=== PATIENT | female | born 1940 | race Caucasian/White ===

== ENCOUNTER 2017-01-28 03:31 | Emergency (ER) | payer OTHER ==
[~2017-01-28] VITALS: Ht 149.9 cm; Wt 62.7 kg
[2017-01-28 03:35] VITALS: Ht 149.9 cm; Wt 62.7 kg
--- NOTE | 2017-01-28 03:55 | ERA ---
ER Documentation Chief Complaint Date/Time DATE: 01/28/17 TIME: 03:54 Chief Complaint Low hemoglobin HPI The patient is a 76-year-old female, presenting to the ER because of low hemoglobin, sent to the ER by her physician. She denies any hematemesis, hematochezia, syncope or near syncope, dizziness, neck pain, chest pain, dyspnea ,, abdominal pain, vomiting with dysuria. She does not smoke nor drink Past medical history: Diabetes mellitus, hypertension Past surgical history: Cholecystectomy ROS All systems reviewed and are negative except as per history of present illness. Medications Home Meds Reported Medications Ferrous Sulfate* (Ferrous Sulfate*) 325 Mg Tabec, 325 MG PO DAILY, TAB 01/28/17 Glipizide* (Glipizide*) 5 Mg Tablet, 5 MG PO DAILY, TAB 01/28/17 Losartan Potassium* (Losartan Potassium*) 50 Mg Tablet, 50 MG PO BID, TAB 01/28/17 Labetalol Hcl* (Labetalol Hcl*) 200 Mg Tablet, 200 MG PO BID, TAB 01/28/17 Allergies Allergies: Coded Allergies: No Known Allergy (Unverified , 01/28/17) Physical Exam Vitals Vital Signs Date Time Temp Pulse Resp B/P Pulse Ox O2 Delivery O2 Flow Rate FiO2 01/28/17 05:38 69 20 174/63 100 Room Air 01/28/17 04:11 75 20 172/79 100 Room Air 01/28/17 03:35 97.0 88 20 181/77 100 Physical Exam Const: No acute distress. Pale Head: Atraumatic. Eyes: Icteric Conjunctiva. ENT: Normal External Ears, Nose and Mouth. Neck: Full range of motion. No meningismus. Resp: Clear to auscultation bilaterally. Cardio: Regular rate and rhythm. Abd: Soft, non distended, normal bowel sounds, non tender. Skin: No petechiae or rashes. Back: No midline or flank tenderness. Ext: No cyanosis, or edema. Neur: Awake and alert. No focal deficit Psych: Normal Mood and Affect. Result Diagram: 01/28/170 01/28/17399 Results 24 hrs Laboratory Tests Test 01/28/17 04:00 White Blood Count 5.210^3/ul Red Blood Count 2.8210^6/ul Hemoglobin 6.9g/dl Hematocrit 23.7% Mean Corpuscular Volume 84.0fl Mean Corpuscular Hemoglobin 24.5pg Mean Corpuscular Hemoglobin Concent 29.1g/dl Red Cell Distribution Width 20.2% Platelet Count 66025^3/UL Mean Platelet Volume 9.7fl Neutrophils % 49.5% Lymphocytes % 35.1% Monocytes % 9.4% Eosinophils % 5.4% Basophils % 0.4% Nucleated Red Blood Cells % 0.0/100WBC Neutrophils # 2.610^3/ul Lymphocytes # 1.810^3/ul Monocytes # 0.510^3/ul Eosinophils # 0.310^3/ul Basophils # 0.010^3/ul Nucleated Red Blood Cells # 0.010^3/ul Prothrombin Time 14.0Sec Prothrombin Time Ratio 1.1 INR International Normalized Ratio 1.08 Activated Partial Thromboplast Time 29.1Sec Sodium Level 144mmol/L Potassium Level 4.2mmol/L Chloride Level 106mmol/L Carbon Dioxide Level 25mmol/L Anion Gap 17 Blood Urea Nitrogen 12mg/dl Creatinine 0.77mg/dl Glucose Level 91mg/dl Calcium Level 9.0mg/dl Total Bilirubin 0.3mg/dl Direct Bilirubin 0.00mg/dl Indirect Bilirubin 0.3mg/dl Aspartate Amino Transf (AST/SGOT) 25IU/L Alanine Aminotransferase (ALT/SGPT) 28IU/L Alkaline Phosphatase 94IU/L Total Protein 7.1g/dl Albumin 3.8g/dl Globulin 3.30g/dl Albumin/Globulin Ratio 1.15 Procedures/MDM EKG: Read by emergency physician Rate/Rhythm: Normal Sinus Rhythm 81 beats/min QRS, ST, T-waves: No ST elevation, no T inversion, sinus arrhythmia Impression: Abnormal EKG MEDICAL MAKING DECISION: The patient is a 76-year-old female, presenting with anemia. There is no sign of active bleeding. She was treated with 2 unit of packed red blood cell and is stable for outpatient follow-up Consultation: I discussed the person with her physician Dr. Taylor, who was made aware of the lab, the treatment, the patient condition. He recommended discharge the patient after transfusion Departure Diagnosis: Primary Impression: Anemia Condition: Fair Comments I discussed the findings with the patient. I advised the patient to follow-up with the primary physician in about 1-2 days for referral to see gastroenterology for further evaluation, sooner if needed and return if any concern. DREAD COLBY MD Jan 28, 2017 03:55
[2017-01-28 04:17] LABS: ABNORMAL IP MESSAGE 1; BASOPHILS % 0.4 % (0.0-2.0); EOSINOPHILS # 0.3 10^3/ul (0.0-0.5); EOSINOPHILS % 5.4 % (0.0-7.0); HEMATOCRIT 23.7 % (37.0-47.0); LYMPHOCYTES # 1.8 10^3/ul (0.8-2.9); LYMPHOCYTES % 35.1 % (15.0-51.0); MEAN CORPUSCULAR HEMOGLOBIN 24.5 pg (29.0-33.0); MEAN CORPUSCULAR HGB CONC 29.1 g/dl (32.0-37.0); MEAN PLATELET VOLUME 9.7 fl (7.4-10.4); MONOCYTE # 0.5 10^3/ul (0.3-0.9); MONOCYTES % 9.4 % (0.0-11.0); NEUTROPHIL # 2.6 10^3/ul (1.6-7.5); NEUTROPHILS % 49.5 % (39.0-77.0); PLATELET COUNT 298 10^3/UL (140-415); RED BLOOD COUNT 2.82 10^6/ul (4.20-5.40); RED CELL DISTRIBUTION WIDTH 20.2 % (11.5-14.5); WHITE BLOOD COUNT 5.2 10^3/ul (4.8-10.8)
[2017-01-28 04:21] LABS: HEMOGLOBIN 6.9 g/dl (12.0-16.0); POSITIVE DIFF @See below
[2017-01-28 04:36] LABS: INR 1.08; PT RATIO 1.1
[2017-01-28 04:37] LABS: PARTIAL THROMBOPLASTIN TIME 29.1 Sec (25.0-35.0)
[2017-01-28 04:41] LABS: ALBUMIN 3.8 g/dl (3.3-4.9); ALBUMIN/GLOBULIN RATIO 1.15; BILIRUBIN,INDIRECT 0.3 mg/dl (0-1.1); BILIRUBIN,TOTAL 0.3 mg/dl (0.2-1.3); CREATININE 0.77 mg/dl (0.44-1.00); POTASSIUM 4.2 mmol/L (3.5-5.1); TOTAL PROTEIN 7.1 g/dl (6.1-8.1)
[2017-01-28] MEDS ORDERED: LABE200T25 PO (05:36)
[2017-01-28] MEDS ORDERED: GLIP5TAB13 PO (05:36)
[2017-01-28] MEDS ORDERED: LOSA50TA6 PO (05:36)
[2017-01-28] MEDS ORDERED: FER325 PO (05:36)
[2017-01-28 09:38] VITALS: TEMP 98.1
[2017-01-28 13:22] VITALS: BP 179/79; PULSE 71; RESP 20
== END 2017-01-28 13:26 | disposition home or self-care (01) ==
LOC: E/R 03:31
DX: D64.9 Anemia, unspecified (principal); R94.31 Abnormal electrocardiogram [ECG] [EKG]; I10 Essential (primary) hypertension; E11.9 Type 2 diabetes mellitus without complications; Z79.84 Long term (current) use of oral hypoglycemic drugs
CPT/HCPCS: 36415; 36430; 80053; 85025; 85610; 85730; 86850; 86900; 86901; 86920; 93005; 99285; P9016

== ENCOUNTER 2018-02-09 12:41 | Emergency (ER) | END 2018-02-09 18:18 | disposition home or self-care (01) ==

== ENCOUNTER 2018-09-04 13:54 | Inpatient (IN) | payer MEDICARE, OTHER ==
[~2018-09-04] VITALS: Ht 121.9 cm; Wt 59.7 kg
[~2018-09-04 13:54] MED LIST: AMLO5TAB4 PO; BENA10TA4 PO; CHOL100062 PO; CYAN100080 PO; DOCU-144 PO; FLUC200T52 PO; HYDR-4011 PO; METR500T PO; ONDA4TAB14 PO
--- NOTE | 2018-09-04 20:11 | ERD ---
ER Documentation Chief Complaint Chief Complaint Per daughter Mother has been hallucinating with flu symptoms x 2 days HPI 78-year-old female with history of hypertension, colon cancer status post colectomy and urinary tract infections presents to the ED with daughter for evaluation of a 2-day history of intermittent periods of confusion and speaking to people who are not there. Patient denies chest pain, palpitations, cough or shortness of breath. No abdominal pain, nausea, vomiting, diarrhea or constipation. Denies dysuria, polyuria, hematuria or flank pain. No URI symptoms, rhinorrhea or odynophagia. No headache, neck or back pain. No fevers or chills. History is supplemented by the daughter who states that patient had prior episodes of urinary tract infection would cause similar symptoms. ROS All systems reviewed and are negative except as per history of present illness. Medications Home Meds Active Scripts Levofloxacin* (Levofloxacin*) 250 Mg Tablet, 250 MG PO DAILY for 7 Days, TAB Prov:JABIER CORONADO MD 09/06/18 Reported Medications Metoprolol Tartrate* (Lopressor*) 25 Mg Tab, 12.5 MG PO BID, #60 TAB 09/04/18 Benazepril Hcl* (Benazepril Hcl*) 10 Mg Tablet, 10 MG PO BID, #60 TAB 09/04/18 Amlodipine Besylate* (Amlodipine Besylate*) 10 Mg Tablet, 10 MG PO DAILY, #30 TAB 09/04/18 Discontinued Reported Medications Hydrocodone/Acetaminophen (Freedom 5-325 Tablet) 1 Each Tablet, 1 EACH PO DAILY PRN for SEVERE PAIN LEVEL 7-10, TAB 02/09/18 Docusate Sodium* (Colace*) 100 Mg Capsule, 100 MG PO DAILY PRN for CONSTIPATION, #30 CAP 02/09/18 Fluconazole* (Fluconazole*) 200 Mg Tablet, 200 MG PO DAILY for 10 Days, TAB 02/09/18 Metronidazole* (Flagyl*) 500 Mg Tablet, 500 MG PO Q8 for 10 Days, TAB 02/09/18 Benazepril Hcl* (Benazepril Hcl*) 10 Mg Tablet, 10 MG PO DAILY, #30 TAB 02/09/18 Amlodipine Besylate* (Norvasc*) 5 Mg Tablet, 5 MG PO DAILY, TAB 02/09/18 Cyanocobalamin* (Vitamin B-12*) 1,000 Mcg Tablet.sa, 1000 MCG PO DAILY, TAB 02/09/18 Cholecalciferol* (Vitamin D3*) 1,000 Unit Tablet, 1000 UNIT PO DAILY, TAB 02/09/18 Discontinued Scripts Ondansetron (Ondansetron Odt) 4 Mg Tab.rapdis, 4 MG PO Q6H PRN for NAUSEA AND/OR VOMITING, #20 TAB Prov:HERNAN JAMES MD 02/09/18 Allergies Allergies: Coded Allergies: No Known Allergy (Unverified , 09/04/18) PMhx/Soc Reviewed in chart. As per HPI. History of Surgery: Yes (colon ressection 01/19/18, accordian drain placement for infection 02/01/18) Anesthesia Reaction: No Hx Neurological Disorder: No Hx Respiratory Disorders: No Hx Cardiac Disorders: Yes (htn) Hx Psychiatric Problems: No Hx Miscellaneous Medical Probl: Yes (colon CA. possible recurrence and biopsy is pending.) Hx Alcohol Use: No Hx Substance Use: No Hx Tobacco Use: No Smoking Status: Never smoker FmHx Family History: No diabetes, No coronary disease, No other Physical Exam Vitals Vital Signs Date Temp Pulse Resp B/P (MAP) Pulse Ox O2 O2 Flow FiO2 Time Delivery Rate 09/04/18 92 18 133/69 96 Room Air 21:30 (90) 09/04/18 98.2 94 18 133/63 98 13:58 (86) Physical Exam Const: No acute distress Head: Atraumatic Eyes: Normal Conjunctiva ENT: Normal External Ears, Nose and Mouth. Neck: Full range of motion. No meningismus. Resp: Clear to auscultation bilaterally Cardio: Regular rate and rhythm, no murmurs Abd: Soft, non tender, non distended. Normal bowel sounds Skin: No petechiae or rashes Back: No midline or flank tenderness Ext: No cyanosis, or edema Neur: Awake and alert Psych: Normal Mood and Affect Result Diagram: 09/06/18 0516 09/06/18 0516 Results 24 hrs Laboratory Tests Test 09/04/18 20:33 09/04/18 22:26 White Blood Count 13.3 10^3/ul Red Blood Count 3.74 10^6/ul Hemoglobin 12.7 g/dl Hematocrit 36.7 % Mean Corpuscular Volume 98.1 fl Mean Corpuscular Hemoglobin 34.0 pg Mean Corpuscular Hemoglobin Concent 34.6 g/dl Red Cell Distribution Width 11.9 % Platelet Count 208 10^3/UL Mean Platelet Volume 10.2 fl Immature Granulocytes % 0.700 % Neutrophils % 85.5 % Lymphocytes % 7.5 % Monocytes % 6.0 % Eosinophils % 0.1 % Basophils % 0.2 % Nucleated Red Blood Cells % 0.0 /100WBC Immature Granulocytes # 0.090 10^3/ul Neutrophils # 11.4 10^3/ul Lymphocytes # 1.0 10^3/ul Monocytes # 0.8 10^3/ul Eosinophils # 0.0 10^3/ul Basophils # 0.0 10^3/ul Nucleated Red Blood Cells # 0.0 10^3/ul Urine Color MARGARITO Urine Clarity CLOUDY Urine pH 5.0 Urine Specific [place] 1.023 Urine Ketones 1+ mg/dL Urine Nitrite NEGATIVE mg/dL Urine Bilirubin NEGATIVE mg/dL Urine Urobilinogen 2+ mg/dL Urine Leukocyte Esterase 2+ Nandini/ul Urine Microscopic RBC 47 /HPF Urine Microscopic WBC > 182 /HPF Urine Squamous Epithelial Cells FEW /HPF Urine Mucus MANY /HPF Urine Hemoglobin 1+ mg/dL Urine Glucose NEGATIVE mg/dL Urine Total Protein 2+ mg/dl Sodium Level 137 mmol/L Potassium Level 3.8 mmol/L Chloride Level 99 mmol/L Carbon Dioxide Level 22 mmol/L Anion Gap 16 Blood Urea Nitrogen 17 mg/dl Creatinine 0.61 mg/dl Est Glomerular Filtrat Rate mL/min mL/min Glucose Level 160 mg/dl Calcium Level 9.6 mg/dl Total Bilirubin 1.6 mg/dl Direct Bilirubin 0.00 mg/dl Indirect Bilirubin 1.6 mg/dl Aspartate Amino Transf (AST/SGOT) 51 IU/L Alanine Aminotransferase (ALT/SGPT) 34 IU/L Alkaline Phosphatase 140 IU/L Troponin I < 0.012 ng/ml Total Protein 8.7 g/dl Albumin 4.5 g/dl Globulin 4.20 g/dl Albumin/Globulin Ratio 1.07 POC Venous Lactate 1.0 mmol/L Current Medications Medications Dose Sig/Luisa Start Time Status Last (Trade) Ordered Route PRN Stop Time Admin Dose Reason Admin Ceftriaxone 50 ml @ ONCE STAT 09/04/18 DC 09/04/18 Sodium 100 mls/hr IVPB 22:03 22:56 09/04/18 22:32 Procedures/MDM DOCUMENTS REVIEWED: ED nurse, prior records EKG: Rate/Rhythm: Normal Sinus Rhythm QRS, ST, T-waves: No changes consistent w/ acute ischemia Impression: No evidence of ischemia or arrhythmia IMAGING: Chest AP portable: The cardiac silhouette is normal. Atelectasis at the bases but no effusions or infiltrates. No mediastinal widening. No abnormalities of the bony thorax. My interpretation. MEDICAL DECISION MAKIN-year-old female with history of hypertension, colon cancer status post colectomy and urinary tract infections presents to the ED with daughter for evaluation of a 2-day history of intermittent periods of confusion and speaking to people who are not there. CBC remarkable for leukocytosis but no anemia or thrombocytopenia. Chemistry is negative for electrolyte abnormalities, renal insufficiency or hyperglycemia. Liver function tests revealed mild hyperbilirubinemia, transaminitis and elevated alk phosphatase. EKG is negative for acute ischemic changes or dysrhythmia. Troponin is negative. Urinalysis significant for pyuria and culture is pending. Chest x-ray negative for pneumonia or congestive heart failure. Patient presents with criteria for systemic inflammatory response syndrome including tachycardia and leukocytosis. Serial lactates are less than 2.0. Patient presents with acute encephalopathy and sepsis secondary to urinary tract infection without hypotension or criteria for severe sepsis or septic shock. No CVA tenderness or signs of pyelonephritis. Antibiotics initiated after cultures. No headache, focal neurologic deficit or indication for neuroimaging. No signs of meningitis or encephalitis. History of colon cancer with possible recurrence pending biopsy abdominal exam is completely benign without tender ness, rebound, guarding, signs of peritonitis or indication for advanced imaging. Admit [place] [facility] [place] pending cultures, further evaluation and management. PATIENT CARE TRANSITIONED: Time: 23:55, Dr. Elder. Counseled patient and family regarding diagnosis, diagnostic results and plan for admission. Departure Diagnosis: Primary Impression: Acute encephalopathy Additional Impressions: Urinary tract infection Urinary tract infection type: acute cystitis Hematuria presence: without hematuria Qualified Codes: N30.00 - Acute cystitis without hematuria History of colon cancer Condition: Serious ROCKY QUIROGA MD Sep 04, 2018 20:11
[2018-09-04] MEDS ORDERED: AMLO-147 PO (21:48)
[2018-09-04] MEDS ORDERED: BENA10TA4 PO (21:49)
[2018-09-04] MEDS ORDERED: METO-448 PO (21:49)
[2018-09-04] MEDS ORDERED: CEFTRIAXONE 1 GM/50 ML (PMX) 50 ML IVPB STA (22:03)
[2018-09-05] MEDS ORDERED: ONDANSETRON 4 MG INJ IV PRN ×2 (00:30→01:00)
[2018-09-05] MEDS ORDERED: NA PHOSPHATE/BIPHOS 133 ML ENEMA PR ONE (00:30)
[2018-09-05] MEDS ORDERED: ACETAMINOPHEN 325 MG TAB PO PRN (00:30)
[2018-09-05] MEDS ORDERED: NACL 0.9% 3 ML SYG IV SCH (01:00)
[2018-09-05 01:24] VITALS: Ht 121.9 cm; Wt 59.7 kg
[2018-09-05 01:29] VITALS: BP 138/73; PULSE 102; RESP 18
--- NOTE | 2018-09-05 04:32 | HP ---
Date/Time of Note Date/Time of Note DATE: 09/05/18 TIME: 04:29 Assessment/Plan VTE Prophylaxis Pharmacological prophylaxis: heparin Lines/Catheters IV Catheter Type (from Nrs): Saline [place] Assessment/Plan Assessment/Plan 1. Altered mentation, likely secondary to UTI, toxic metabolic -No focal neurologic deficit reported -Treat UTI -We will consider head CT 2. Sepsis: As evidenced by leukocytosis and tachycardia, secondary to UTI -IV ceftriaxone -IV fluid -Follow-up culture results 3. History of colon cancer: Status post resection (12/2017): Her daughter, CT 3 weeks ago shows "big lymph nodes" possibly indicating recurrence of cancer. She is scheduled for biopsy. -Daughter will tell last name of her oncologist during the day. will then place consult to the appropriate oncologist 4. Hypertension: BP within goal Result Diagram: 09/04/18203209/04/182032 Results 24hrs Laboratory Tests Test 09/04/18 20:33 09/04/18 22:26 09/05/18 00:44 White Blood Count 13.3 #H Red Blood Count 3.74 L Hemoglobin 12.7 # Hematocrit 36.7 #L Mean Corpuscular Volume 98.1 Mean Corpuscular Hemoglobin 34.0 H Mean Corpuscular Hemoglobin Concent 34.6 Red Cell Distribution Width 11.9 Platelet Count 208 # Mean Platelet Volume 10.2 Immature Granulocytes % 0.700 H Neutrophils % 85.5 H Lymphocytes % 7.5 L Monocytes % 6.0 Eosinophils % 0.1 Basophils % 0.2 Nucleated Red Blood Cells % 0.0 Immature Granulocytes # 0.090 H Neutrophils # 11.4 H Lymphocytes # 1.0 Monocytes # 0.8 Eosinophils # 0.0 Basophils # 0.0 Nucleated Red Blood Cells # 0.0 Urine Color MARGARITO Urine Clarity CLOUDY A Urine pH 5.0 Urine Specific [place] 1.023 Urine Ketones 1+ H Urine Nitrite NEGATIVE Urine Bilirubin NEGATIVE Urine Urobilinogen 2+ H Urine Leukocyte Esterase 2+ H Urine Microscopic RBC 47 H Urine Microscopic WBC > 182 H Urine Squamous Epithelial Cells FEW Urine Mucus MANY A Urine Hemoglobin 1+ H Urine Glucose NEGATIVE Urine Total Protein 2+ H Sodium Level 137 Potassium Level 3.8 Chloride Level 99 Carbon Dioxide Level 22 Anion Gap 16 H Blood Urea Nitrogen 17 Creatinine 0.61 Est Glomerular Filtrat Rate mL/min Glucose Level 160 Calcium Level 9.6 Total Bilirubin 1.6 H Direct Bilirubin 0.00 Indirect Bilirubin 1.6 H Aspartate Amino Transf (AST/SGOT) 51 H Alanine Aminotransferase (ALT/SGPT) 34 Alkaline Phosphatase 140 H Troponin I < 0.012 Total Protein 8.7 H Albumin 4.5 Globulin 4.20 H Albumin/Globulin Ratio 1.07 POC Venous Lactate 1.0 1.9 HPI/ROS Admit Date/Time Admit Date/Time Sep 05, 2018 at 00:06 Hx of Present Illness This is an 78-year-old female with a history of hypertension, colon cancer status post resection (12/2017). Patient was brought to the ER because of altered mentation. She has been noted by family at times to be hallucinating. Patient is accompanied by her daughter who helps with the history. She said the last time she had similar symptoms was a year ago and she was diagnosed with UTI at that time. When presented to ER she was alert and oriented. Initial vitals stable. UA consistent with UTI. Influenza negative. WBC 13,000. Chest x-ray without acute findings. As far as her colon cancer is concerned, she saw her oncologist (daughter does not remember name) about 3 weeks ago. At that time, she had a CT and was told that the cancer is possibly coming back because of "big lymph nodes". She is scheduled for a biopsy. Patient was diagnosed with colon cancer last year and is status post resection in December 2017. Per daughter, no treatment with chemo or radiation. PMH/Family/Social Past Medical History Medical History: other (See HPI) Medications Current Medications Ondansetron HCl (Zofran Inj) 4 mg BRIDGE ORDER PRN IV NAUSEA/VOMITING; Start 09/05/18 at 00:30; Stop 09/06/18 at 00:29 Acetaminophen (Tylenol Tab) 650 mg ER BRIDGE PRN PO .MILD PAIN 1-3 OR TEMP; Start 09/05/18 at 00:30; Stop 09/06/18 at 00:29 IV Flush (NS 3 ml) 3 ml PER PROTOCOL IV ; Start 09/05/18 at 01:00 Ondansetron HCl (Zofran Inj) 4 mg Q6H PRN IV NAUSEA/VOMITING; Start 09/05/18 at 01:00 Acetaminophen (Tylenol Tab) 650 mg Q6H PRN PO .PAIN 1-3 OR TEMP; Start 09/05/18 at 01:00 Heparin Sodium (Porcine) (Heparin (5000 Units/1ml)) 5,000 unit Q12 SC ; Start 09/05/18 at 09:00 Amlodipine Besylate (Norvasc) 10 mg DAILY PO ; Start 09/05/18 at 09:00 Benazepril HCl (Lotensin) 10 mg BID PO ; Start 09/05/18 at 09:00 Metoprolol Tartrate (Lopressor) 12.5 mg BID PO ; Start 09/05/18 at 09:00 Ceftriaxone Sodium 50 ml @ 100 mls/hr DAILY IVPB ; Start 09/05/18 at 09:00 Coded Allergies: No Known Allergy (Unverified , 09/04/18) Past Surgical History Past Surgical Hx: other (See HPI) Family History Significant Family History: no pertinent family hx Social History Alcohol Use: none Smoking Status: Unknown if ever smoked Drug Use: none Exam/Review of Systems Vital Signs Vitals Vital Signs Date Temp Pulse Resp B/P (MAP) Pulse Ox O2 O2 Flow FiO2 Time Delivery Rate 09/05/18 98.5 102 18 138/73 95 01:29 (94) 09/05/18 Room Air 00:30 Exam Constitutional: other (No acute distress. Looks comfortable) Head: normocephalic, atraumatic Eyes: EOMI, PERRL Respiratory: clear to auscultation, normal air movement Cardiovascular: regular rate and rhythm, nl pulses Gastrointestinal: soft, non-tender Extremities: normal pulses ARMINDA ORTIZ MD Sep 05, 2018 04:31
[2018-09-05 07:56] VITALS: BP 128/60; PULSE 103; RESP 18
[2018-09-05] MEDS: METOPROLOL 25 MG TAB PO SCH ×2 (09:05→21:53)
[2018-09-05] MEDS: BENAZEPRIL 10 MG TAB PO SCH ×2 (09:05→21:53)
[2018-09-05] MEDS: AMLODIPINE 10 MG TAB PO SCH (09:05)
[2018-09-05] MEDS: HEPARIN 5,000 UNIT/1 ML VIAL SC SCH ×2 (09:06→21:55)
[2018-09-05] MEDS: CEFTRIAXONE 1 GM/50 ML (PMX) 50 ML IVPB SCH (09:06)
[2018-09-05] MEDS: ACETAMINOPHEN 325 MG TAB PO PRN ×2 (09:09→18:31)
[2018-09-05 14:00] VITALS: BP 110/59; PULSE 73; RESP 17
--- NOTE | 2018-09-05 16:21 | PN ---
Date/Time of Note Date/Time of Note DATE: 09/05/18 TIME: 16:17 Assessment/Plan VTE Prophylaxis Risk score (from [facility] [place])>0 risk: 6 SCD applied (from [facility] [place]): Yes Pharmacological prophylaxis: heparin Lines/Catheters IV [facility]ter Type (from [facility]): Peripheral IV Assessment/Plan Assessment/Plan 1. UTI, antibiotics with rocephin 2. Sepsis, IVF and antibiotics 3. Acute encephalopathy due to sepsis, supportive care 4. History of colon cancer: Status post resection (12/2017): Her daughter, CT 3 weeks ago shows "big lymph nodes" possibly indicating recurrence of cancer. She is scheduled for biopsy. 5. Hypertension, controlled 6. DVT prophylaxis: heparin Result Diagram: 09/04/18203209/04/182032 Results 24hrs Laboratory Tests Test 09/04/18 20:33 09/04/18 22:26 09/05/18 00:44 White Blood Count 13.3 #H Red Blood Count 3.74 L Hemoglobin 12.7 # Hematocrit 36.7 #L Mean Corpuscular Volume 98.1 Mean Corpuscular Hemoglobin 34.0 H Mean Corpuscular Hemoglobin Concent 34.6 Red Cell Distribution Width 11.9 Platelet Count 208 # Mean Platelet Volume 10.2 Immature Granulocytes % 0.700 H Neutrophils % 85.5 H Lymphocytes % 7.5 L Monocytes % 6.0 Eosinophils % 0.1 Basophils % 0.2 Nucleated Red Blood Cells % 0.0 Immature Granulocytes # 0.090 H Neutrophils # 11.4 H Lymphocytes # 1.0 Monocytes # 0.8 Eosinophils # 0.0 Basophils # 0.0 Nucleated Red Blood Cells # 0.0 Urine Color MARGARITO Urine Clarity CLOUDY A Urine pH 5.0 Urine Specific [place] 1.023 Urine Ketones 1+ H Urine Nitrite NEGATIVE Urine Bilirubin NEGATIVE Urine Urobilinogen 2+ H Urine Leukocyte Esterase 2+ H Urine Microscopic RBC 47 H Urine Microscopic WBC > 182 H Urine Squamous Epithelial Cells FEW Urine Mucus MANY A Urine Hemoglobin 1+ H Urine Glucose NEGATIVE Urine Total Protein 2+ H Sodium Level 137 Potassium Level 3.8 Chloride Level 99 Carbon Dioxide Level 22 Anion Gap 16 H Blood Urea Nitrogen 17 Creatinine 0.61 Est Glomerular Filtrat Rate mL/min Glucose Level 160 Calcium Level 9.6 Total Bilirubin 1.6 H Direct Bilirubin 0.00 Indirect Bilirubin 1.6 H Aspartate Amino Transf (AST/SGOT) 51 H Alanine Aminotransferase (ALT/SGPT) 34 Alkaline Phosphatase 140 H Troponin I < 0.012 Total Protein 8.7 H Albumin 4.5 Globulin 4.20 H Albumin/Globulin Ratio 1.07 POC Venous Lactate 1.0 1.9 Subjective 24 Hr Interval Summary Free Text/Dictation weak, intermittent comfusion per the daughter Exam/Review of Systems Exam Vitals Vital Signs Date Temp Pulse Resp B/P (MAP) Pulse Ox O2 O2 Flow FiO2 Time Delivery Rate 09/05/18 98.1 73 17 110/59 94 Room Air 14:00 (76) Constitutional: alert, well developed Psych: no complaints, nl mood/affect Head: normocephalic, atraumatic Eyes: nl conjunctiva, EOMI, nl lids ENMT: nl external ears & nose, nl lips & teeth, nl nasal mucosa & septum Neck: supple, non-tender Respiratory: clear to auscultation, normal air movement; No congested cough, No crackles/rales, No diminished breath sounds, No intercostal retraction, No labored breathing, No respirations, No tactile fremitus, No wheezing, No other Cardiovascular: regular rate and rhythm, nl pulses; No bruits, No diastolic murmur, No edema, No gallop, No irregular rhythm, No jugular venous distention (JVD), No murmurs/extra sounds, No rub, No systolic murmur, No S3, No S4, No other Gastrointestinal: soft, nl liver, spleen, non-tender; No ascites, No bowel sounds, No distended, No firm, No hepatomegaly, No mass, No rebound or guarding, No splenomegaly, No surgical scars, No tender, No other Musculoskeletal: nl extremities to inspection Extremities: normal pulses; No calf tenderness, No cyanosis, No clubbing, No edema, No pitting pedal edema, No palpable cord, No tenderness, No other 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, nl speech Results Results 24hrs Laboratory Tests Test 09/04/18 20:33 09/04/18 22:26 09/05/18 00:44 White Blood Count 13.3 #H Red Blood Count 3.74 L Hemoglobin 12.7 # Hematocrit 36.7 #L Mean Corpuscular Volume 98.1 Mean Corpuscular Hemoglobin 34.0 H Mean Corpuscular Hemoglobin Concent 34.6 Red Cell Distribution Width 11.9 Platelet Count 208 # Mean Platelet Volume 10.2 Immature Granulocytes % 0.700 H Neutrophils % 85.5 H Lymphocytes % 7.5 L Monocytes % 6.0 Eosinophils % 0.1 Basophils % 0.2 Nucleated Red Blood Cells % 0.0 Immature Granulocytes # 0.090 H Neutrophils # 11.4 H Lymphocytes # 1.0 Monocytes # 0.8 Eosinophils # 0.0 Basophils # 0.0 Nucleated Red Blood Cells # 0.0 Urine Color MARGARITO Urine Clarity CLOUDY A Urine pH 5.0 Urine Specific [place] 1.023 Urine Ketones 1+ H Urine Nitrite NEGATIVE Urine Bilirubin NEGATIVE Urine Urobilinogen 2+ H Urine Leukocyte Esterase 2+ H Urine Microscopic RBC 47 H Urine Microscopic WBC > 182 H Urine Squamous Epithelial Cells FEW Urine Mucus MANY A Urine Hemoglobin 1+ H Urine Glucose NEGATIVE Urine Total Protein 2+ H Sodium Level 137 Potassium Level 3.8 Chloride Level 99 Carbon Dioxide Level 22 Anion Gap 16 H Blood Urea Nitrogen 17 Creatinine 0.61 Est Glomerular Filtrat Rate mL/min Glucose Level 160 Calcium Level 9.6 Total Bilirubin 1.6 H Direct Bilirubin 0.00 Indirect Bilirubin 1.6 H Aspartate Amino Transf (AST/SGOT) 51 H Alanine Aminotransferase (ALT/SGPT) 34 Alkaline Phosphatase 140 H Troponin I < 0.012 Total Protein 8.7 H Albumin 4.5 Globulin 4.20 H Albumin/Globulin Ratio 1.07 POC Venous Lactate 1.0 1.9 Medications Medication Current Medications Ondansetron HCl (Zofran Inj) 4 mg BRIDGE ORDER PRN IV NAUSEA/VOMITING; Start 09/05/18 at 00:30; Stop 09/06/18 at 00:29 Acetaminophen (Tylenol Tab) 650 mg ER BRIDGE PRN PO .MILD PAIN 1-3 OR TEMP; Start 09/05/18 at 00:30; Stop 09/06/18 at 00:29 IV Flush (NS 3 ml) 3 ml PER PROTOCOL IV ; Start 09/05/18 at 01:00 Ondansetron HCl (Zofran Inj) 4 mg Q6H PRN IV NAUSEA/VOMITING; Start 09/05/18 at 01:00 Acetaminophen (Tylenol Tab) 650 mg Q6H PRN PO .PAIN 1-3 OR TEMP Last administered on 09/05/18at 09:09; Admin Dose 650 MG; Start 09/05/18 at 01:00 Heparin Sodium (Porcine) (Heparin (5000 Units/1ml)) 5,000 unit Q12 SC Last administered on 09/05/18 09:06; Admin Dose 5,000 UNIT; Start 09/05/18 at 09:00 Amlodipine Besylate (Norvasc) 10 mg DAILY PO Last administered on 09/05/18 09:05; Admin Dose 10 MG; Start 09/05/18 at 09:00 Benazepril HCl (Lotensin) 10 mg BID PO Last administered on 09/05/18 09:05; Admin Dose 10 MG; Start 09/05/18 at 09:00 Metoprolol Tartrate (Lopressor) 12.5 mg BID PO Last administered on 09/05/18 09:05; Admin Dose 12.5 MG; Start 09/05/18 at 09:00 Ceftriaxone Sodium 50 ml @ 100 mls/hr DAILY IVPB Last administered on 09/05/18 09:06; Admin Dose 100 MLS/HR; Start 09/05/18 at 09:00 JABIER CORONADO MD Sep 05, 2018 16:21
[2018-09-05 19:53] VITALS: BP 118/61; PULSE 84; RESP 20
[2018-09-05 21:59] VITALS: BP 117/66; PULSE 82
[2018-09-06 02:12] VITALS: BP 120/61; PULSE 79; RESP 20
[2018-09-06 07:39] VITALS: BP 139/63; PULSE 93; RESP 19
[2018-09-06] MEDS: ACETAMINOPHEN 325 MG TAB PO PRN (08:58)
[2018-09-06] MEDS: BENAZEPRIL 10 MG TAB PO SCH (08:59)
[2018-09-06] MEDS: CEFTRIAXONE 1 GM/50 ML (PMX) 50 ML IVPB SCH (08:59)
[2018-09-06] MEDS: AMLODIPINE 10 MG TAB PO SCH (08:59)
[2018-09-06] MEDS: METOPROLOL 25 MG TAB PO SCH (09:02)
[2018-09-06] MEDS: HEPARIN 5,000 UNIT/1 ML VIAL SC SCH (09:03)
[2018-09-06] MEDS ORDERED: POTASSIUM CHLORIDE (SR) 20 MEQ TAB PO STA ×2 (09:30→13:20)
[2018-09-06] MEDS ORDERED: LEVO250T9 PO (13:17)
--- NOTE | 2018-09-06 13:23 | DS ---
Date/Time of Note Date/Time of Note DATE: 09/06/18 TIME: 13:18 Discharge Summary Admission/Discharge Info Admit Date/Time Sep 05, 2018 at 00:06 Discharge Date/Time Discharge Diagnosis 1. UTI, stable, levaquin 2. Sepsis, resolved 3. Acute encephalopathy due to sepsis, resolved 4. History of colon cancer: Status post resection (12/2017): Her daughter, CT 3 weeks ago shows "big lymph nodes" possibly indicating recurrence of cancer. She is scheduled for biopsy. 5. Hypertension, controlled Patient Condition: Stable Hospital Course This is an 78-year-old female with a history of hypertension, colon cancer status post resection (12/2017). Patient was brought to the ER because of altered mentation. She has been noted by family at times to be hallucinating. Patient is accompanied by her daughter who helps with the history. She said the last time she had similar symptoms was a year ago and she was diagnosed with UTI at that time. When presented to ER she was alert and oriented. Initial vitals stable. UA consistent with UTI. Influenza negative. WBC 13,000. Chest x-ray without acute findings. As far as her colon cancer is concerned, she saw her oncologist (daughter does not remember name) about 3 weeks ago. At that time, s he had a CT and was told that the cancer is possibly coming back because of "big lymph nodes". She is scheduled for a biopsy. Patient was diagnosed with colon cancer last year and is status post resection in December 2017. Per daughter, no treatment with chemo or radiation. WBC 13,300 on admission. UA WBC>182. urine culture with mixed gram pos and gram neg organisms. Blood culture one of the two was positive with staph species. Patient is treated with rocephin for UTI, symptoms totally improved. The one of the two bottles of blood culture positive is considered contamination. I will discharge her with 7 days of levaquin. Home Meds Active Scripts Levofloxacin* (Levofloxacin*) 250 Mg Tablet, 250 MG PO DAILY for 7 Days, TAB Prov:JABIER CORONADO MD 09/06/18 Reported Medications Metoprolol Tartrate* (Lopressor*) 25 Mg Tab, 12.5 MG PO BID, #60 TAB 09/04/18 Benazepril Hcl* (Benazepril Hcl*) 10 Mg Tablet, 10 MG PO BID, #60 TAB 09/04/18 Amlodipine Besylate* (Amlodipine Besylate*) 10 Mg Tablet, 10 MG PO DAILY, #30 TAB 09/04/18 Discontinued Reported Medications Hydrocodone/Acetaminophen ([place] 5-325 Tablet) 1 Each Tablet, 1 EACH PO DAILY PRN for SEVERE PAIN LEVEL 7-10, TAB 02/09/18 Docusate Sodium* (Colace*) 100 Mg Capsule, 100 MG PO DAILY PRN for CONSTIPATION, #30 CAP 02/09/18 Fluconazole* (Fluconazole*) 200 Mg Tablet, 200 MG PO DAILY for 10 Days, TAB 02/09/18 Metronidazole* (Flagyl*) 500 Mg Tablet, 500 MG PO Q8 for 10 Days, TAB 02/09/18 Benazepril Hcl* (Benazepril Hcl*) 10 Mg Tablet, 10 MG PO DAILY, #30 TAB 02/09/18 Amlodipine Besylate* (Norvasc*) 5 Mg Tablet, 5 MG PO DAILY, TAB 02/09/18 Cyanocobalamin* (Vitamin B-12*) 1,000 Mcg Tablet.sa, 1000 MCG PO DAILY, TAB 02/09/18 Cholecalciferol* (Vitamin D3*) 1,000 Unit Tablet, 1000 UNIT PO DAILY, TAB 02/09/18 Discontinued Scripts Ondansetron (Ondansetron Odt) 4 Mg Tab.rapdis, 4 MG PO Q6H PRN for NAUSEA AND/OR VOMITING, #20 TAB Prov:HERNAN JAMES MD 02/09/18 Follow-up Plan PCP in one week Primary Care Provider Not On Staff Doctor Pending Labs Laboratory Tests Test 09/06/18 05:16 White Blood Count 8.2 10^3/ul (4.8-10.8) Red Blood Count 3.52 10^6/ul (4.20-5.40) Hemoglobin 11.9 g/dl (12.0-16.0) Hematocrit 34.5 % (37.0-47.0) Mean Corpuscular Volume 98.0 fl (82.0-101.0) Mean Corpuscular Hemoglobin 33.8 pg (29.0-33.0) Mean Corpuscular Hemoglobin Concent 34.5 g/dl (32.0-37.0) Red Cell Distribution Width 11.9 % (11.5-14.5) Platelet Count 213 10^3/UL (140-415) Mean Platelet Volume 10.4 fl (7.4-10.4) Immature Granulocytes % 0.400 % (0.001-0.429) Neutrophils % 72.0 % (39.0-77.0) Lymphocytes % 17.4 % (15.0-51.0) Monocytes % 9.6 % (0.0-11.0) Eosinophils % 0.2 % (0.0-7.0) Basophils % 0.4 % (0.0-2.0) Nucleated Red Blood Cells % 0.0 /100WBC (0.0-0.0) Immature Granulocytes # 0.030 10^3/ul (0.0-0.031) Neutrophils # 5.9 10^3/ul (1.6-7.5) Lymphocytes # 1.4 10^3/ul (0.8-2.9) Monocytes # 0.8 10^3/ul (0.3-0.9) Eosinophils # 0.0 10^3/ul (0.0-0.5) Basophils # 0.0 10^3/ul (0.0-0.1) Nucleated Red Blood Cells # 0.0 10^3/ul (0.0-0.0) Sodium Level 139 mmol/L (135-144) Potassium Level 3.3 mmol/L (3.5-5.1) Chloride Level 101 mmol/L (97-110) Carbon Dioxide Level 27 mmol/L (21-31) Anion Gap 11 (5-13) Blood Urea Nitrogen 11 mg/dl (7-20) Creatinine 0.49 mg/dl (0.44-1.00) Est Glomerular Filtrat Rate mL/min mL/min (>60) Glucose Level 94 mg/dl (70-220) Calcium Level 9.0 mg/dl (8.4-10.2) Phosphorus Level 3.1 mg/dl (2.5-4.9) Magnesium Level 1.8 mg/dl (1.7-2.5) JABIER CORONADO MD Sep 06, 2018 13:23
[2018-09-06 14:20] VITALS: BP 116/65; PULSE 69; RESP 16
== END 2018-09-06 17:00 | disposition home or self-care (01) | DRG 689 ==
LOC: E/R 13:54 → PP2 09-05 00:06
PROVIDERS: ADMIT Internal Medicine; ATTEND Internal Medicine
DX: N39.0 Urinary tract infection, site not specified (principal); G92 Toxic encephalopathy; A41.9 Sepsis, unspecified organism; I10 Essential (primary) hypertension; Z85.038 Personal history of other malignant neoplasm of large intestine; Z90.49 Acquired absence of other specified parts of digestive tract
CPT/HCPCS: 71045; 80048; 80053; 81001; 83605; 83735; 84100; 84484; 85025; 87040; 87086; 87400; 93005; 96374; J0696; J1644

== ENCOUNTER → 2018-09-27 | Day surgery (SDC) | payer MEDICARE, OTHER ==
[~2018-09-27] VITALS: Ht 142.2 cm; Wt 57.6 kg
[2018-09-27] VITALS (11 sets, daily range): BP systolic 95–151; BP diastolic 48–69; PULSE 52–75; RESP 14–21; Ht 142.2 cm; Wt 57.6 kg
[~2018-09-27] MED LIST changes: +AMLO-147 PO; -AMLO5TAB4 PO; -CHOL100062 PO; -CYAN100080 PO; -DOCU-144 PO; +FENTAnyl 50 MCG/ML VIAL ONE; -FLUC200T52 PO; +GLIP5TAB13 PO; -HYDR-4011 PO; +LEVO250T9 PO; +LIDOCAINE 1% (MDV) 20 ML INJ ONE; +METO-448 PO; -METR500T PO; -ONDA4TAB14 PO; +SOD CHLORIDE 0.9% 1,000 ML IV SCH
--- NOTE | 2018-09-27 08:01 | HPN ---
Date/Time of Note Date/Time of Note DATE: 09/27/18 TIME: 08:00 Interval H&P Admission Note Pt. seen H&P reviewed: No system changes DANETTE VILLAGOMEZ MD Sep 27, 2018 08:01
== END | disposition home or self-care (01) ==
LOC: SDS 07:26
PROVIDERS: ATTEND Internal Medicine Hematology & Oncology
DX: C34.90 Malignant neoplasm of unspecified part of unspecified bronchus or lung (principal); C78.6 Secondary malignant neoplasm of retroperitoneum and peritoneum
CPT/HCPCS: 49180; 77012; 88307; 88313; J3010; 88341; 88342